=== PATIENT | male | born 1995 | race Caucasian/White ===

== ENCOUNTER 2018-06-29 14:04 | Emergency (ER) | payer OTHER ==
[~2018-06-29] VITALS: Ht 182.9 cm; Wt 102.0 kg
[2018-06-29] MEDS ORDERED: LIDOCAINE HCL/EPINEPHRINE 0.5%-EPI 1:200,000 50 ML VIAL INFIL ONE (15:45)
[2018-06-29 15:47] LABS: HEMOGLOBIN. 14.5 g/dL (14.0-18.0); MEAN CORPUSCULAR HEMOGLOBIN 30.1 pg (28.0-32.0); MEAN CORPUSCULAR VOLUME 89.1 fL (80.0-94.0); MEAN PLATELET VOLUME 8.5 fl (7.4-10.4); PLATELET 214 x1000/uL (130-400); RED BLOOD CELL COUNT 4.83 mill/uL (4.7-6.1)
[2018-06-29 15:54] LABS: CHLORIDE 100 mEq/L (98-107)
[2018-06-29 15:55] LABS: INR 1.2
[2018-06-29] MEDS: ACETAMINOPHEN 325MG TABLET PO STA (16:00)
[2018-06-29] MEDS: SODIUM CHLORIDE 0.9% 1000ML BAG (SEPSIS BOLUS) IV ONE (16:00)
[2018-06-29 16:17] LABS: PLATELET ESTIMATE NORMAL
[2018-06-29] MEDS: CLINDAMYCIN 600 MG in DEXTROSE 5% WATER 50 ML IV ONE (17:10)
[2018-06-29] MEDS ORDERED: IOHEXOL-300 100 ML BOTTLE ONE (19:07)
[2018-06-29 20:55] VITALS: BP 122/66
== END 2018-06-29 21:15 | disposition left against medical advice (07) ==
LOC: ER 14:04 → CANBEDREQ 23:14
DX: J36 Peritonsillar abscess (principal); R00.0 Tachycardia, unspecified
CPT/HCPCS: 36415; 70491; 71045; 80053; 83605; 84145; 85025; 85610; 87040; 93005; 96365; 99284; J3490; J7030; J7060; Q9967